=== PATIENT | male | born 1975 | race Caucasian/White ===

== ENCOUNTER 2017-05-31 21:56 | Emergency (ER) | payer SELFPAY ==
[~2017-05-31] VITALS: Ht 170.2 cm; Wt 70.0 kg
[2017-05-31 21:58] VITALS: BP 130/83; PULSE 65; RESP 16; TEMP 97.6; O2SAT 100
[2017-05-31] MEDS ORDERED: PRED20 PO (22:51)
[2017-05-31] MEDS ORDERED: ALBU6.7H INH (22:51)
[2017-05-31] MEDS ORDERED: ZITH250T PO (22:51)
--- NOTE | 2017-05-31 22:54 | PD ---
HPI Chief Complaint: Cold / Flu Symptoms Time Seen by Provider: 22:45 Travel History International Travel<30 days: No Contact w/Intl Traveler<30days: No Traveled to known affect area: No History of Present Illness HPI 42-year-old white male presents to emergency department with complaints of cough and chest congestion for the last 2 weeks. He has had subjective fever and chills, sore throat, colored sputum, shortness of breath, wheezing and pleuritic chest wall pain. He denies any ear pain, nausea, vomiting, abdominal pain or diarrhea. No dysuria frequency. Symptoms are moderate. He is a smoker. [facility], [facility] Past Medical History Medical History: Denies Significant Hx Diminished Hearing: No Tetanus Vaccination: < 5 Years Past Surgical History Tonsillectomy: Yes Social History Alcohol Use: No Tobacco Use: Yes Substance Use: No Allergies-Medications (Allergen,Severity, Reaction): Coded Allergies: No Known Allergies (Verified Allergy, Unknown, 05/31/17) Reported Meds & Prescriptions Reported Meds & Active Scripts Active Prednisone 20 Mg Tab 20 Mg PO TID Proventil Hfa 6.7 GM Inh (Albuterol Sulfate) 90 Mcg/Act Aer 2 Puff INH Q4-6H PRN Zithromax (Azithromycin) 250 Mg Tab 250 Mg PO DIRECTED Take 2 tabs (500 mg) on day 1 then 1 tab daily x 4 days. Review of Systems Except as stated in HPI: all other systems reviewed are Neg Physical Exam Narrative GENERAL: Well-developed, well-nourished in no acute distress. Nontoxic appearing. HEAD: Normocephalic, atraumatic. EYES: Pupils equal round and reactive. Extraocular motions intact. No scleral icterus. No injection or drainage. ENT: TMs clear without erythema. The external auditory canals clear. Nose: clear . Posterior pharynx is pink and moist. No tonsillar edema or exudate. Uvula midline. Airway patent. NECK: Trachea midline.Supple, nontender, moves head freely. No central bony tenderness or spasm. CARDIOVASCULAR: Regular rate and rhythm without murmurs, gallops, or rubs. RESPIRATORY: Clear to auscultation. Breath sounds equal bilaterally. No wheezes , rales, or rhonchi. GASTROINTESTINAL: Abdomen soft, non-tender, nondistended. No hepato-splenomegaly , or palpable masses. No guarding. EXTREMITIES: No clubbing, cyanosis, or edema. No joint tenderness, effusion, or edema noted. BACK: Nontender without deformity or crepitance. No flank tenderness. Data Data Last Documented VS Vital Signs Date Time Temp Pulse Resp B/P (MAP) Pulse Ox O2 Delivery O2 Flow Rate FiO2 05/31/17 21:58 97.6 65 16 130/83 (99) 100 Orders Orders Azithromycin (Zithromax) (05/31/17 23:00) Prednisone (Deltasone) (05/31/17 23:00) MDM Medical Decision Making Medical Screen Exam Complete: Yes Emergency Medical Condition: Yes Medical Record Reviewed: Yes Differential Diagnosis MDM: High Differential diagnoses: Pneumonia, bronchitis, URI, asthma, RAD, legionnaire's disease, SARS, ARDS, influenza, bronchiolitis, RSV,PE,CHF Narrative Course Patient is given prednisone 40 mg and Zithromax 500 mg by mouth. This is asthmatic bronchitis Diagnosis Primary Impression: Asthmatic bronchitis Qualified Codes: J45.20 - Mild intermittent asthma, uncomplicated Patient Instructions: General Instructions Additional Instructions: Rest. Increase fluids. Tylenol and Advil. Robitussin-DM. Stop smoking. Zithromax, prednisone, and albuterol. Followup with your Dr. in one week. Return to the ER for any problems. Med/Other Pt SpecificInfo: Prescription(s) given Scripts Prednisone (Prednisone) 20 Mg Tab 20 MG PO TID, #15 TAB 0 Refills Prov: Elliot Lockhart MD 05/31/17 Albuterol 6.7 GM Inh (Proventil Hfa 6.7 GM Inh) 90 Mcg/Act Aer 2 PUFF INH Q4-6H Y for SHORTNESS OF BREATH, #1 INHALER 0 Refills Prov: Elliot Lockhart MD 05/31/17 Azithromycin (Zithromax) 250 Mg Tab 250 MG PO DIRECTED for Infection, #6 TAB 0 Refills Take 2 tabs (500 mg) on day 1 then 1 tab daily x 4 days. Prov: Elliot Lockhart MD 05/31/17 Disposition: 01 DISCHARGE HOME Condition: Stable Akil Hurt May 31, 2017 22:54
[2017-05-31] MEDS ORDERED: predniSONE 20 MG TAB PO ONE (23:00)
[2017-05-31] MEDS ORDERED: AZITHROMYCIN 250 MG TAB PO ONE (23:00)
== END 2017-05-31 23:44 | disposition home or self-care (01) ==
LOC: NEPK 21:56
DX: J45.20 Mild intermittent asthma, uncomplicated (principal); F17.210 Nicotine dependence, cigarettes, uncomplicated
CPT/HCPCS: 99284; J7512